=== PATIENT | male | born 1945 | race Hispanic/Latino ===

== ENCOUNTER → 2017-12-16 | Outpatient (CLI) | payer MEDICARE ==
--- NOTE | 2017-12-19 18:29 | Polysomnography ---
DATE OF STUDY: REFERRING PHYSICIAN: Dr. Calin Cornelius. HISTORY OF PRESENT ILLNESS: The patient reports snoring and a history of obstructive sleep apnea. Without the CPAP machine, the patient has difficulty sleeping and daytime somnolence. INTERPRETATION: The patient came for a 2nd night study with titration. The patient slept for 367.5 minutes out of 466.1 minutes. The sleep efficiency was 79.4%. The sleep onset latency was 1.5 minutes. The latency to REM was 287.5 minutes. The patient spent 77 minutes in REM sleep, which was 21% of the night. The minimal heart rate was 48 beats per minute. The minimal saturation was 87%. The patient had some increased limb movements. The patient spent 99.8% of the night in the supine position. The [place] sleep score was 11. The marine extension agent desensitized the patient to CPAP with a full face mask. The patient initiated CPAP at 4 cm of water pressure and then gradually increased to 14 cm of water pressure. At 14 cm of water pressure, respiratory events were still present and the CPAP was switched to BiPAP. The BiPAP was increased to 19/15. The patient had some induced central apneas, and a backup rate of 10 was required. IMPRESSION: 1. Successful treatment of obstructive sleep apnea with BiPAP. 2. Therapeutically induced central sleep apneas requiring a backup rate. 3. Increased daytime somnolence with [place] sleep score of 11. RECOMMENDATIONS: 1. BiPAP S/T at a setting of 19/15 cm of water pressure with a backup rate of 10 and a heated humidifier. 2. Avoid alcohol or sedatives prior to retiring at night. 3. Medically supervised weight loss. 4. Followup in 1 month to ensure compliance and good therapeutic results with BiPAP. Job#: [id number] EV
== END ==
LOC: SLEEP 19:23
PROVIDERS: ATTEND Family Medicine
DX: G47.30 Sleep apnea, unspecified (principal)
CPT/HCPCS: 95811

== ENCOUNTER → 2018-08-16 | Outpatient (CLI) | payer MEDICARE ==
--- NOTE | 2018-08-16 12:19 | Diagnostic Imaging Report ---
PROCEDURE:HIP LEFT 2 Views COMPARISON:None. INDICATIONS:LOW BACK/LEFT HIP PAIN FINDINGS: No evidence of fracture or malalignment. Moderate degenerative changes in the left hip with joint space narrowing, subchondral sclerosis, and bony osteophyte formation. Atherosclerotic vascular calcifications are present. Two radiopaque densities project over the pubic symphysis. CONCLUSION: Moderate left hip osteoarthritis. No acute osseous abnormality. Dictated by: OANH FREDERICK M.D. on 08/16/2018 at 11:07 Electronically approved by: OANH FREDERICK M.D. on 08/16/2018 at 11:07
--- NOTE | 2018-08-16 12:19 | Diagnostic Imaging Report ---
PROCEDURE:L-SPINE COMPLETE COMPARISON:None. INDICATIONS:LOW BACK PAIN FINDINGS: There are five lumbar-type vertebral bodies. Minimal retrolisthesis of L5 on S1. Vertebral body heights are maintained without evidence of fracture. Multilevel degenerative disc and facet degenerative changes, with moderate severity at L5-S1 with associated bony neural foraminal stenosis. Atherosclerotic calcifications of the abdominal aorta. CONCLUSION: No acute osseous abnormality. Moderate degenerative disc and facet degenerative changes at L5-S1 with associated bony neural foraminal stenosis. Dictated by: OANH FREDERICK M.D. on 08/16/2018 at 11:03 Electronically approved by: OANH FREDERICK M.D. on 08/16/2018 at 11:03
== END ==
LOC: RAD 09:48
PROVIDERS: ATTEND Family Medicine
DX: M54.5 Low back pain (principal); M25.552 Pain in left hip
CPT/HCPCS: 72110

== ENCOUNTER → 2018-11-04 | Day surgery (SDC) | payer MEDICARE ==
[2018-11-02 13:55] LABS: BASOPHILS % 0.5 % (0.0-1.0); EOSINOPHILS # (AUTO) 0.2 (0.0-0.4); EOSINOPHILS % 3.1 % (0.0-6.0); HEMATOCRIT 43.2 % (38.2-49.6); HEMOGLOBIN 14.7 g/dL (14.0-18.0); LYMPHOCYTES # (AUTO) 1.2 (1.0-3.2); LYMPHOCYTES % 20.9 % (18.0-39.1); MEAN CORPUSCULAR HEMOGLOBIN 29.3 pg (28-32); MEAN CORPUSCULAR VOLUME 86.2 fL (81-99); MONOCYTES # (AUTO) 0.4 (0.2-0.8); MONOCYTES % 6.4 % (4.4-11.3); NEUTROPHILS % 68.6 % (38.7-80.0); PLATELET COUNT 159 x10e3/uL (140-360); RED BLOOD COUNT 5.01 x10e6/uL (4.3-5.7); RED CELL DISTRIBUTION WIDTH 12.9 % (11.7-14.4)
--- NOTE | 2018-11-02 14:21 | Diagnostic Imaging Report ---
EXAM: XR CHEST 2 VIEWS DATE: 11/02/2018 1:45 PM INDICATION: Hematuria, UTI COMPARISON: None FINDINGS: Lines and Tubes: None Heart and Mediastinum: The heart is upper limits of normal. There is tortuosity of the aorta. Lungs and Pleura: No significant pleural effusion, pneumothorax, or focal consolidation. Minimal opacities in the lung bases statistically represent atelectasis, however, infectious process could have a similar appearance. Bones and Soft Tissues: Surgical anchor left humeral head. IMPRESSION: 1. No acute findings. Chronic changes as above. Signed by: Dr. Kodi West MD on 11/02/2018 2:17 PM
[~2018-11-04] MED LIST: ARICEPT5 MG PO; ATORVASTATIN CA10 MG PO; BELLADONNA/OPIUM 60 MG SUPP PR ONE; CEFTRIAXONE SOD 1 GM VIAL ONE; DEXAMETHASONE SOD PHOS INJ 4 MG/ML VIAL ONE; DIGOXIN125 MCG PO; HYDRALAZINE HCL 20 MG/ML VIAL ONE; IOPAMIDOL 610MG/1ML 300 MG/ML VIAL IV ONE; LIDOCAINE HCL 2% LOCAL INJ 5 ML SDV VIAL INJ ONE; MYRBETRIQ50 MG; NAMENDA10 MG; ONDANSETRON HCL INJ 2 MG/ML VIAL ONE; PROPOFOL IV EMULSION 10 MG/ML 20 ML VIAL ONE; SEVOFLURANE INHAL SOLN 250 ML PEN BTL ONE; XARELTO20 MG
--- OUTSIDE RECORDS SUMMARY | 2018-11-04 09:46 | XMS REPORT ---
[facility] Address Unknown Phone Unavailable Care Team Providers Care Mri Tech Name Role Phone DAIN LEDESMA Unavailable Unavailable XIOMARA JARRELL Unavailable Unavailable Problems This patient has no known problems. Allergies, Adverse Reactions, Alerts This patient has no known allergies or adverse reactions. Medications This patient has no known medications. Results Test Description Test Time Test Comments Text Results Atomic Results Result Comments CHEST 2 VIEWS 2018-11-02 14:16:00 [place] [address] Patient Name: MARCK TOLEDO MR #: [id number] : 1945 Age/Sex: 73/M Req #: [id number] Adm Physician: Ordered by: DAIN LEDESMA MD Report #: [id number] Location: OR Room/Bed: Procedure: [id number] DX/CHEST 2 VIEWS Exam Date: 11/02/18 Exam Time: 1402 REPORT STATUS: Signed EXAM: XR CHEST 2 VIEWS DATE: 11/02/2018 1:45 PM REYNALDO CATION: Hematuria, UTI COMPARISON: None FINDINGS: Lines and Tubes: None Heart and Mediastinum: The heart is upper limits of normal. There is tortuosity of the aorta. Lungs and Pleura: No significant pleural effusion, pneumothorax, or focal consolidation. Minimal opacities in the lung bases statistically represent atelectasis, however, infectious process could have a similar appearance. Bones and Soft Tissues: Surgical anchor left humeral head. IMPRESSION: 1. No acute findings. Chronic changes as above. Signed by: Dr. Kodi West MD on 11/02/2018 2:17 PM Dictated By: KODI WEST MD 16 Transcribed By: TY on 11/02/181416 COPY TO: DAIN LEDESMA MD HIP LEFT 2-3 VW (+/- PELVIS) 2018-08-16 11:07:00 [place] [address] Patient Name: MARCK TOLEDO MR #: [id number] : 1945 Age/Sex: 73/M Req #: [id number] Adm Physician: Ordered by: CHRYSTAL PFEIFFER, XIOMARA Prasad MD Report #: [id number] Location: [facility] Room/Bed: Procedure: [id number] DX/HIP LEFT 2-3 VW (+/- PELVIS) Exam Date: Exam Time: REPORT STATUS: Signed PROCEDURE: HIP LEFT 2 Views COMPARISON: None. INDICATIONS: LOW BACK/LEFT HIP PAIN FINDINGS: No evidence of fracture or malalignment. Moderate degenerative changes in the left hip with joint space narrowing, subchondral sclerosis, and bony osteophyte formation. Atherosclerotic vascular calcifications are present. Two radiopaque densities project over the pubic symphysis. CONCLUSION: Moderate left hip osteoarthritis. No acute osseous abnormality. Dictated by: OANH FREDERICK M.D. on 08/16/2018 at 11:07 Electronically approved by: OANH FREDERICK M.D. on 08/16/2018 at 11:07 Dictated By: OANH FREDERICK MD 06 Transcribed By: KALYN on 08/16/18 110 COPY TO: XIOMARA JARRELL LUMBAR, COMPLETE MIN 4VW 2018-08-16 11:03:00 [facility] [address] [place] [address] Patient Name: MARCK TOLEDO MR #: [id number] : 1945 Age/Sex: 73/M Req #: [id number] Adm Physician: Ordered by: XIOMARA JARRELL MD, MD Report #: [id number] Location: [facility] Room/Bed: Procedure: [id number] DX/BIRGIT LUMBAR, COMPLETE MIN 4VW Exam Date: 08/16/18 Exam Time: 1030 REPORT STATUS: Signed PROCEDURE: L-SPINE COMPLETE COMPARISON: None. INDICATIONS: LOW BACK PAIN FINDINGS: There are five lumbar- type vertebral bodies. Minimal retrolisthesis of L5 on S1. Vertebral body heights are maintained without evidence of fracture. Multilevel degenerative disc and facet degenerative changes, with moderate severity at L5-S1 with associated bony neural foraminal stenosis. Atherosclerotic calcifications of the abdominal aorta. CONCLUSION: No acute osseous abnormality. Moderate degenerative disc and facet degenerative changes at L5-S1 with associated bony neural foraminal stenosis. Dictated by: OANH FREDERICK M.D. on 08/16/2018 at 11:03 Electronically approved by: OANH FREDERICK M.D. on 08/16/2018 at 11:03 Dictated By: OANH FREDERICK MD 02 Transcribed By: KALYN on 08/16/18 110 COPY TO: XIOMARA JARRELL
[2018-11-04 11:19] LABS: INR 1.05; PROTHROMBIN TIME 14.6 seconds (11.9-14.5)
[2018-11-04 11:20] LABS: PARTIAL THROMBOPLASTIN TIME 33.8 seconds (23.8-35.5)
[2018-11-04 11:28] LABS: ALANINE AMINOTRANSFERASE 24 IU/L (0-55); ALBUMIN 3.6 g/dL (3.5-5.0); ALBUMIN/GLOBULIN RATIO 1.4 (0.8-2.0); ALKALINE PHOSPHATASE 68 IU/L (40-150); ANION GAP 13.1 mmol/L (8-16); BLOOD UREA NITROGEN 16 mg/dL (7-26); BUN/CREATININE RATIO 22 (6-25); CALCIUM 8.9 mg/dL (8.4-10.2); CARBON DIOXIDE 24 mmol/L (22-29); CHLORIDE 109 mmol/L (98-107); CREATININE, SERUM 0.74 mg/dL (0.72-1.25); EST GLOMERULAR FILTRATION RATE > 60 ML/MIN (60-); GLUCOSE 98 mg/dL (74-118); POTASSIUM 4.1 mmol/L (3.5-5.1); SODIUM 142 mmol/L (136-145)
[2018-11-04 15:20] VITALS: BP 147/82
--- NOTE | 2018-11-04 19:41 | Operative Report ---
DATE OF PROCEDURE: November 04, 2018 PREOPERATIVE DIAGNOSIS: Gross hematuria. POSTOPERATIVE DIAGNOSES 1. Gross hematuria. 2. Bulbar urethral stricture. OPERATIONS PERFORMED 1. Cystourethroscopy with calibration and dilation of urethral stricture (separately performed for the diagnosis of stricture). 2. Cystourethroscopy with bilateral ureteral catheterization and retrograde ureteropyelography (separately performed for the hematuria). 3. Interpretation of retrograde ureteral pyelography. ANESTHESIA: General. COMPLICATIONS: None. CLINICAL SUMMARY: Eddi Aguilar is a 73-year-old man with a history of BPH. He is status post transurethral prostatectomy. The patient also has a history of prostate cancer and is status post radiotherapy. The patient had an episode of gross hematuria. Hematuria was self-limited, but he is brought to the operating room for evaluation. He and his daughter are aware of the risks of bleeding, infection, injury to adjacent structures, need for additional procedures, and elected to proceed. OPERATIVE PROCEDURE IN DETAIL: Informed consent was verified. Eddi Aguilar was properly identified, taken to the operating room and placed on the lithotripsy table in supine position. Anesthesia was uneventfully begun. The patient was then carefully gently repositioned in the dorsal lithotomy position with all pressure points well padded. His genitalia were prepared and draped in usual sterile fashion. A 22.5-Namibian cystoscope sheath with visual obturator in place was atraumatically inserted into the patient's urethra. It was guided down the unremarkable urethra through the bulbar region where there was a wide caliber urethral stricture. We calibrated it at proximally 16-Namibian in size and gently dilated it to 22.5-Namibian in size to fit the cystoscope sheath with the visual obturator. We then passed a normal sphincteric region and went through the prostate bed. The prostate bed was significant for being status post transurethral resection. The proximal portion of the prostate bed was wide open. There was some residual or regrowth of BPH tissue at the apex. There was some mild friability of the prostatic urethral mucosa and some hyperemia of the same mucosa. There was blanching of mucosa following radiotherapy. We entered the patient's bladder where panendoscopy revealed no suspicious mucosal lesions, no tumors, no stones. There was a 3-mm piece of some tissue that was floating in the bladder that we evacuated out. It disintegrated and could not be stent for histopathological analysis. There were trabeculations noted, but no suspicious lesions. An 8-Namibian catheter was used to cannulate each ureter and retrograde ureteropyelograms were performed. Interpretation of retrograde ureteropyelography contrast was instilled in retrograde fashion bilaterally. There were no tumors, no stones, and no diverticula. Unobstructed drainage was observed bilaterally fluoroscopically. J-hooking was noted as well as distal ureteral narrowing. The patient's bladder was drained. We carefully reexamined the prostate bed as we exited and there was minimal oozing from the hyperemic prostatic urethral mucosa. There was no bleeding from the dilation of the urethral stricture. The belladonna and opium suppository was placed, revealing a prostate that was smooth and flat without any obvious nodule. It was generally firm. The patient was then uneventfully reversed from anesthesia and taken to recovery room in stable condition. There were no complications during the procedure. The patient tolerated the procedure well. Estimated blood loss was minimal. Explicit postoperative instructions were given and we will follow the patient up in the office at followup appointment. We plan on performing uroflowmetry and bladder ultrasonography to revaluate the patient's voiding following stricture dilation. Job#: [id number] RTY cc:XIOMARA JARRELL MD
== END | disposition home or self-care (01) ==
LOC: OR 09:44
PROVIDERS: ATTEND Urology
DX: N35.912 Unspecified bulbous urethral stricture, male (principal); N40.0 Benign prostatic hyperplasia without lower urinary tract symptoms; N32.89 Other specified disorders of bladder; Z85.46 Personal history of malignant neoplasm of prostate; Z92.3 Personal history of irradiation; G47.33 Obstructive sleep apnea (adult) (pediatric); I48.91 Unspecified atrial fibrillation; R00.1 Bradycardia, unspecified; G30.9 Alzheimer's disease, unspecified; F02.80 Dementia in other diseases classified elsewhere, unspecified severity, without behavioral disturbance, psychotic disturbance, mood disturbance, and anxiety; Z01.810 Encounter for preprocedural cardiovascular examination; Z01.812 Encounter for preprocedural laboratory examination; Z01.818 Encounter for other preprocedural examination; Z87.891 Personal history of nicotine dependence
CPT/HCPCS: 36415 ×2; 52281; 71046; 74420; 80053; 85025; 85610; 85730; 93005; C1758; J0360; J0696; J1100; J2001; J2405; J2704; Q9967

== ENCOUNTER 2019-09-16 15:31 | Inpatient (IN) | payer MEDICARE ==
[~2019-09-16] VITALS: Ht 170.2 cm; Wt 88.0 kg
[~2019-09-16 15:31] MED LIST changes: -BELLADONNA/OPIUM 60 MG SUPP PR ONE; -CEFTRIAXONE SOD 1 GM VIAL ONE; -DEXAMETHASONE SOD PHOS INJ 4 MG/ML VIAL ONE; -HYDRALAZINE HCL 20 MG/ML VIAL ONE; -IOPAMIDOL 610MG/1ML 300 MG/ML VIAL IV ONE; -LIDOCAINE HCL 2% LOCAL INJ 5 ML SDV VIAL INJ ONE; -ONDANSETRON HCL INJ 2 MG/ML VIAL ONE; -PROPOFOL IV EMULSION 10 MG/ML 20 ML VIAL ONE; -SEVOFLURANE INHAL SOLN 250 ML PEN BTL ONE
--- OUTSIDE RECORDS SUMMARY | 2019-09-16 15:34 | XMS REPORT ---
Author Author [facility] Address Unknown Phone Unavailable Care Team Providers Care Sas Programmer Remote Name Role Phone BALTAZAR DAIN Unavailable Unavailable CORNELIUS XIOMARA Unavailable Unavailable Payers Payer Name Policy Type Policy Number Effective Date Expiration Date Problems This patient has no known problems. Allergies, Adverse Reactions, Alerts Allergy Name Allergy Type Status Severity Reaction(s) Onset Date Inactive Date Treating Clinician Comments No Known Allergies DA Active U 2018-10-10 00:00:00 No Known Drug Intolerances DA Active U 2009-05-27 00:00:00 Not Converted 80. See Text. DA Active U 2009-05-27 00:00:00 Medications This patient has no known medications. Encounters Start Date/Time End Date/Time Encounter Type Admission Type Attending Clinicians Care Facility Care Department Encounter ID 2019-06-13 08:20:00 2019-06-13 08:20:00 Outpatient [id number] 2019-03-14 15:00:00 2019-03-14 15:00:00 Outpatient [facility]SE [id number] Results Test Description Test Time Test Comments Text Results Atomic Results Result Comments INTERVERTEBRAL DISC 2019-06-27 16:12:00 RUN DATE: 06/27/19 [facility] PAGE 1 RUN TIME: 1612 Specimen Inquiry RUN USER: INTERFACE PATIENT: MARCK TOLEDO LOC: VERONIQUE U #: [id number] AGE/SX: 73/M ROOM: [facility] RE06/26/19REG DR: Edwar Ch MD : 45 BED: A DIS: 06/27/19 STATUS: DIS Rosalba TLOC: SPEC #: [id number] RECD: 06/26/19 STATUS: SHARON REQ #: [id number] [place]: 06/26/19-105 [facility] [address]: Edwar Ch MD ENTERED: 06/26/19-4506 SP TYPE: INT DISC OTHR DR: Xiomara Cornelius MD ORDERED: CARTER COPIES TO: Edwar Ch MD [address] [place] [address] Xiomara Cornelius MD [address] [place], [place] [address] P ROCEDURES: CARTER (06/27/19-1254) TISSUES: LUMBAR REGION - DISC AND LIGAMENTUM FLAVUM CLINICAL HISTORY COLLECTION DATE: 06/26/2019 L4-5 SPINAL STENOSIS FINAL DIAGNOSIS Disc and ligamentum flavum, L4- 5, laminectomy: CARTILAGE WITH DEGENERATIVE CHANGE TRABECULAR BONE WITH UNREMARKABLE MARROW ELEMENTS AND MILD REACTIVE APPEARING FIBROSIS NEGATIVE FOR MALIGNANCY RRB/brady D 17230, 16181 MACROSCOPIC The specimen is received in formalin, labeled with the patient's name, and identified as "disc and ligamentum flavum", and consists of irregular fragments of hunt-pink fibrous tissue and bone measuring 4.0 x 4.0 x up to 0.8 cm in aggregate. Sales Financial Analyst portions of tissue are submitted for histologic CONTINUED ON NEXT PAGE RUN DATE: 06/27/19 [facility] PAGE 2 RUN TIME: 1612 Specimen Inquiry RUN USER: INTERFACE SPEC #: [id number] PATIENT: MARCK TOLEDO #[id number] (Continued) MACROSCOPIC (Continued) evaluation after decalcification. The tissue is submitted in a single cassette. GROSS PERFORMED AT [facility] [address] [place] [address] [phone] MICROSCOPIC All of the stains, including any controls performed, stain appropriately. MICROSCOPIC PERFORMED AT [facility] [address] [place] [address] [phone] PERFORMING SITE Diagnosis performed at: [facility], [place] [address] [facility] [place] [address] -------- Signed SIGNATURE ON FILE Deandre Tripp MD 06/27/19 1612 END OF REPORT - XR SPINE 1 V SPEC LEVEL 2019-06-26 11:30:00 FAX: Edwar Singletary MD [phone] [place]: St: REG FAX: Xiomara Reynolds MD [phone] Name: MARCK TOLEDO [facility] : 1945 Age/S: 73/M [address] Unit #: [id number] Loc: [place] [address] Phys: Edwar Ch MD Acct: [id number] Dis Date: Status: [place] [facility] PHONE #: [phone] Exam Date: 06/26/2019 0957 FAX #: [phone] Reason: LAMINECTOMY EXAMS: CPT CODE: [id number] XR SPINE 1 V SPEC LEVEL 78273 HISTORY: Laminectomy. COMPARISON: None available. Crosstable lateral lumbar spine obtained at 9:55 AM demonstrating marker at L4-L5 level. Crosstable lateral lumbar spine obtained at 10:05 AM demonstrating marker at L4-L5 level. at 1130 Reported and signed by: Tim Pro M.D. CC: Edwar Ch MD; Xiomara Cornelius MD Technologist: KUNAL GARCÍA JR Trnscrd Date/Time/By: 06/26/2019 (1133) : By: YanethT H4 [employer] Print D/T: S: 06/26/2019 (9664) PAGE 1 Signed Report - XR SPINE 1 V SPEC LEVEL 2019-06-26 11:30:00 FAX: Edwar Singletary MD [phone] [place]: St: REG FAX: Xiomara Reynolds MD [phone] Name: MARCK TOLEDO [facility] : 1945 Age/S: 73/M [address] Unit #: [id number] Loc: [place] [address] Phys: Edwar Ch MD Acct: [id number] Dis Date: Status: REG [facility] PHONE #: [phone] Exam Date: 06/26/2019 0947 FAX #: [phone] Reason: LAMINECTOMY EXAMS: CPT CODE: [id number] XR SPINE 1 V SPEC LEVEL 99624 HISTORY: Laminectomy. COMPARISON: None available. Crosstable lateral lumbar spine obtained at 9:55 AM demonstrating marker at L4-L5 level. Crosstable lateral lumbar spine obtained at 10:05 AM demonstrating marker at L4-L5 level. at 1130 Reported and signed by: Tim Pro M.D. CC: Edwar Ch MD; Xiomara Cornelius MD Technologist: KUNAL GARCÍA JR Trnscrd Date/Time/By: 06/26/2019 (7145) : By: Ruma H4 Orig Print D/T: S: 06/26/2019 (9512) PAGE 1 Signed Report PROTHROMBIN TIME 2019-06-23 12:19:00 PROTHROMBIN TIME PATIENT (test code=PTP) 14.0 seconds 9.0-14.0 INTERNATIONAL NORMAL RATIO (test code=INR) 1.2 0.8-1.2 The therapeutic range for oral anticoagulant therapy formost indications is an international normalized ratio (INR)of between 2.0 and 3.0. The recommended therapeutic INRrange for various clinical situations is listed below: Clinical Situation INR range Pulmonary e mbolism treatment (2.0-3.0)Venous thrombosis treatmentVenous thrombosis prophylaxis (high risk surgery)Prevention of systemic embolism from: Acute myocardial infarction Valvular heart disease Atrial fibrillation Mechanical prosthetic heart valves (2.5-3.5) THROMBOPLASTIN TIME [id number] 12:19:00* Test Item Value Reference Range Comments THROMBOPLASTIN TIME PARTIAL (test code=PTT) 40.5 seconds 25.0-36.5 BASIC METABOLIC [id number] 12:17:00* Test Item Value Reference Range Comments SODIUM (test code=NA) 144 mmol/L 136-145 POTASSIUM (test code=K) 4.1 mmol/L 3.5-5.1 CHLORIDE (test code=CL) 108.0 mmol/L 98-107 CARBON DIOXIDE (test code=CO2) 31.0 mmol/L 21-32 ANION GAP (test code=GAP) 9.1 10-20 GLUCOSE (test code=GLU) 164 mg/dL 74-106 BLOOD UREA NITROGEN (test code=BUN) 19 mg/dL 7-18 GLOMERULAR FILTRATION RATE (test code=GFR) > 60 mL/min >=60 Estimated GFR by using Modified MDRD formula.Chronic kidney disease is defined as either kidney damageor GFR <60 mL/min/1.73 m2 for >3 months. CREATININE (test code=CREAT) 0.90 mg/dL 0.7-1.3 BUN/CREATININE RATIO (test code=BUN/CREA) 21.9 10-20 CALCIUM (test code=CA) 9.1 mg/dL 8.5-10.1 BASIC METABOLIC [id number] 12:13:00* Test Item Value Reference Range Comments SODIUM (test code=NA) 144 mmol/L 136-145 POTASSIUM (test code=K) 4.1 mmol/L 3.5-5.1 CHLORIDE (test code=CL) 108.0 mmol/L 98-107 CARBON DIOXIDE (test code=CO2) mmol/L 21-32 ANION GAP (test code=GAP) 10-20 GLUCOSE (test code=GLU) mg/dL 74-106 BLOOD UREA NITROGEN (test code=BUN) mg/dL 7-18 GLOMERULAR FILTRATION RATE (test code=GFR) mL/min >=60 CREATININE (test code=CREAT) mg/dL 0.7-1.3 BUN/CREATININE RATIO (test code=BUN/CREA) 10-20 CALCIUM (test code=CA) mg/dL 8.5-10.1 - XR CHEST 2 [id number] 12:02:00 FAX: Edwar Singletary MD [phone] [place]: O St: PRE FAX: Xiomara Reynolds MD [phone] Name: MARCK TOLEDO [facility] : 1945 Age/S: 73/M [address] [facility] Unit #: [id number] Loc: [place] [address] Phys: Edwar Ch MD Acct: [id number] Dis Date: Status: PRE IN PHONE #: [phone] Exam Date: 06/23/2019 1148 FAX #: [phone] Reason: PRE OP EXAMS: CPT CODE: [id number] XR CHEST 2 V 69292 HISTORY: Preop. COMPARISON: None available. AP and lateral view of the chest: No acute infiltrates, effusion or congestion. Cardiac silhouette is mildly enlarged. DJD of the dorsal spine. IMPRESSION: No acute infiltrates, effusion or congestion. at 1202 Reported and signed by: Tim Pro M.D. CC: Edwar Ch MD; Xiomara Cornelius MD Technologist: VALERIA OATES RT (R) Trnscrd Date/Time/By: 06/23/2019 (2847) : By: [email or web address].[email or web address] Orig Print D/T: S: 06/23/2019 (4401) PAGE 1 Signed Report CBC W/AUTO [id number] 11:59:00* Test Item Value Reference Range Comments WHITE BLOOD CELL (test code=WBC) K/mm3 4.5-12.5 RED BLOOD CELL (test code=RBC) mill/mm3 4.0-5.8 HEMOGLOBIN (test code=HGB) 14.9 gram/dL 13.0-17.5 HEMATOCRIT (test code=HCT) 45.8 % 42.0-52.0 MEAN CELL VOLUME (test code=MCV) fL 80-98 MEAN CELL HGB (test code=MCH) picogram 27.0-33.0 MEAN CELL HGB CONCETRATION (test code=MCHC) gram/dL 33.0-36.0 RED CELL DISTRIBUTION WIDTH (test code=RDW) % 11.6-16.2 RED CELL DISTRIBUTION WIDTH SD (test code=RDW-SD) fL 37.0-51.0 PLATELET COUNT (test code=PLT) K/mm3 150-450 MEAN PLATELET VOLUME (test code=MPV) fL 6.7-11.0 NEUTROPHIL % (test code=NT%) % 39.0-69.0 IMMATURE GRANULOCYTE % (test code=IG%) % 0.0-5.0 LYMPHOCYTE % (test code=LY%) % 25.0-55.0 MONOCYTE % (test code=MO%) % 0.0-10.0 EOSINOPHIL % (test code=EO%) % 0.0-5.0 BASOPHIL % (test code=BA%) % 0.0-1.0 NEUTROPHIL # (test code=NT#) K/mm3 1.8-7.7 LYMPHOCYTE # (test code=LY#) K/mm3 1.0-5.0 MONOCYTE # (test code=MO#) K/mm3 0-0.8 EOSINOPHIL # (test code=EO#) K/mm3 0.0-0.5 BASOPHIL # (test code=BA#) K/mm3 0.0-0.2 CBC W/AUTO [id number] 11:59:00* Test Item Value Reference Range Comments WHITE BLOOD CELL (test code=WBC) 5.2 K/mm3 4.5-12.5 RED BLOOD CELL (test code=RBC) 5.18 mill/mm3 4.0-5.8 HEMOGLOBIN (test code=HGB) 14.9 gram/dL 13.0-17.5 HEMATOCRIT (test code=HCT) 45.8 % 42.0-52.0 MEAN CELL VOLUME (test code=MCV) 88.4 fL 80-98 MEAN CELL HGB (test code=MCH) 28.8 picogram 27.0-33.0 MEAN CELL HGB CONCETRATION (test code=MCHC) 32.5 gram/dL 33.0-36.0 RED CELL DISTRIBUTION WIDTH (test code=RDW) 12.5 % 11.6-16.2 RED CELL DISTRIBUTION WIDTH SD (test code=RDW-SD) 40.6 fL 37.0-51.0 PLATELET COUNT (test code=PLT) 131 K/mm3 150-450 MEAN PLATELET VOLUME (test code=MPV) 10.3 fL 6.7-11.0 NEUTROPHIL % (test code=NT%) 72.6 % 39.0-69.0 IMMATURE GRANULOCYTE % (test code=IG%) 0.4 % 0.0-5.0 LYMPHOCYTE % (test code=LY%) 17.0 % 25.0-55.0 MONOCYTE % (test code=MO%) 4.6 % 0.0-10.0 EOSINOPHIL % (test code=EO%) 4.8 % 0.0-5.0 BASOPHIL % (test code=BA%) 0.6 % 0.0-1.0 NUCLEATED RBC % (test code=NRBC%) 0.0 % 0-0 NEUTROPHIL # (test code=NT#) 3.81 K/mm3 1.8-7.7 IMMATURE GRANULOCYTE # (test code=IG#) 0.02 x10 3/uL 0-0.03 LYMPHOCYTE # (test code=LY#) 0.89 K/mm3 1.0-5.0 MONOCYTE # (test code=MO#) 0.24 K/mm3 0-0.8 EOSINOPHIL # (test code=EO#) 0.25 K/mm3 0.0-0.5 BASOPHIL # (test code=BA#) 0.03 K/mm3 0.0-0.2 NUCLEATED RBC # (test code=NRBC#) 0.00 K/mm3 0.0-0.1 MANUAL DIFF REQUIRED (test code=MDIFF) NO CHEST 2 [id number] 14:16:00 [place] [address] Patient Name: MARCK TOLEDO MR #: [id number] : 1945 Age/Sex: 73/M Req #: [id number] Adm Physician: Ordered by: DAIN LEDESMA MD Report #: [id number] Location: OR Room/Bed: Procedure: [id number] DX/C HEST 2 VIEWS Exam Date: 11/02/18 Exam Time: 1402 REPORT STATUS: Signed EXAM: XR CHEST 2 VIEWS DATE: 11/02/2018 1:45 PM INDICATION: Hematuria, UTI COMP ARISON: None FINDINGS: Lines and Tubes: None Heart and Mediastinu m: The heart is upper limits of normal. There is tortuosity of the aorta. Lungs and Pleura: No significant pleural effusion, pneumothorax, or focal con solidation. Minimal opacities in the lung bases statistically represent atelec tasis, however, infectious process could have a similar appearance. Bones a nd Soft Tissues: Surgical anchor left humeral head. IMPRESSION: 1. No a cute findings. Chronic changes as above. Signed by: Dr. Rob West MD on 11/02/2018 2:17 PM Dictated By: ROB WEST MD 16 Transcribed By: TY on 11/02/181416 COPY TO: DAIN LEDESMA MD HIP LEFT 2-3 VW (+/- PELVIS)2018-08-16 11:07:00 [place] [address] Patient Name: MARCK TOLEDO MR #: [id number] : 1945 Age/Sex: 73/M Req #: [id number] Adm Physician: Ordered by: CHRYSTAL PFEIFFER, XIOMARA Prasad MD Report #: [id number] Location: [facility] Room/Bed: Procedure: DX/HIP LEFT 2-3 VW (+ /- PELVIS) Exam Date: Exam Time: REPORT STAT US: Signed PROCEDURE: HIP LEFT 2 Views COMPARISON: None. REYNALDO CATIONS: LOW BACK/LEFT HIP PAIN FINDINGS: No evidence of fracture o r malalignment. Moderate degenerative changes in the left hip with joint spac e narrowing, subchondral sclerosis, and bony osteophyte formation. Atheroscle rotic vascular calcifications are present. Two radiopaque densities project o yoselin the pubic symphysis. CONCLUSION: Moderate left hip osteoart hritis. No acute osseous abnormality. Dictated by: OANH FREDERICK M.D. on at 11:07 Electronically approved by: OANH FREDERICK M.D. on 018 at 11:07 Dictated By: OANH FREDERICK MD 1107 Transcribed By: KALYN on 08/16/18 1107 C OPY TO: XIOMARA CORNELIUS LUMBAR, COMPLETE MIN [id number] 11:03:00 [place] [address] Patient Name: MARCK TOLEDO MR #: [id number] : 1945 Age/Sex: 73/M Req #: [id number] Adm Physicia n: Ordered by: CHRYSTAL PFEIFFER, XIOMARA Prasad MD Report #: [id number] Location: [facility] Room/Bed: Procedure: DX/SP LUMBAR, COMPLET E MIN 4VW Exam Date: 08/16/18 Exam Time: 1030 REPORT STATUS: Signed PROCEDURE: L-SPINE COMPLETE COMPARISON: None. INDICATIONS: LOW BACK PAIN FINDINGS: There are five lumbar-t ype vertebral bodies. Minimal retrolisthesis of L5 on S1. Vertebral body heig hts are maintained without evidence of fracture. Multilevel degenerative disc and facet degenerative changes, with moderate severity at L5-S1 with associa ike bony neural foraminal stenosis. Atherosclerotic calcifications of the abd ominal aorta. CONCLUSION: No acute osseous abnormality. Modera te degenerative disc and facet degenerative changes at L5-S1 with associated bony neural foraminal stenosis. Dictated by: OANH FREDERICK M.D. on 07/30 at 11:03 Electronically approved by: OANH FREDERICK M.D. 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 TO: XIOMARA CORNELIUS CT ABDOMEN/PELVIS WOW [place] [address] Patient Name: MARCK TOLEDO MR #: [id number] : 1945 Age/Sex: 72/M Req #: [id number] Adm Physician: Ordered by: DAIN LEDESMA MD Report #: [id number] Location: CT Room/Bed: Procedure: [id number] CT/CT ABDOMEN/PELVIS WOW Exam Date: 11/16/17 Exam Time: 1700 REPORT STATUS: S igned PROCEDURE: CT ABDOMEN T PELVIS W/WO CONTRAST TECHNIQUE: The abdomen and pelvis were scanned utilizing a multidetector helical scanner fro m the diaphragm to the lesser trochanter before and after the IV administrati on of 150 cc of Isovue 370 and the oral administration of water. Coronal and sagittal multiplanar reformations were obtained. COMPARISON: Patients [facility], CT, CT ABDOMEN/PELVIS WOW, 06/25/2015, 13:22. INDICATIONS : Gross hematuria. FINDINGS: LOWER THORAX: Bilateral dependent atelectat ic changes. Cardiomegaly with atherosclerotic calcification of the aortic elvia ves, coronary arteries and thoracic aorta. HEPATOBILIARY: No focal hepa tic lesions. No biliary ductal dilatation. Gallbladder is unremarkable. SP MICHELLE: No splenomegaly. PANCREAS: No focal masses or ductal dilatation. A DRENALS: No adrenal nodules. KIDNEYS/URETERS: No renal or ureteral calculi. No hydronephrosis, hydroureter, or evidence of obstruction. Mild bilateral pe rinephric stranding. There is good contrast opacification of bilateral renal c ollecting systems, renal pelves, and both ureters. No filling defects, str ictures, or extrinsic compressions. Previously visualized mild urothelial thi ckening in the superior pole of the right kidney is not seen on the current e xam. No solid enhancing masses. No cystic lesions. PELVIC ORGANS/BLADDER: Mild circumferential bladder wall thickening, however, the bladder is not ful ly distended. Prostate measures approximately 4.7 x 3.9 x 4.7 cm (estimated v olume of 45 cc). PERITONEUM / RETROPERITONEUM: No free air or fluid. LYM PH NODES: No lymphadenopathy. VESSELS: Atherosclerotic calcification of the ab dominal aorta and iliac vessels. GI TRACT: No bowel dilation or evidenc e of obstruction. Colonic diverticulosis, worse in the descending and sigmoid colon, without diverticulitis. BONES AND SOFT TISSUES: No acute bony abnor malities. Degenerative disc changes in the lumbosacral spine, worse at L4-L5, and L5-S1. IMPRESSION: 1. no renal, ureteral, or bladder calculi. No hydronephrosis, hydroureter, or evidence of obstruction. No solid enhancing masses. 2. No filling defects, strictures, or extrinsic compressions in the opacified portions of the genitourinary tract. Previously visualized mild u rothelial thickening in the superior pole of the right kidney is not seen on the current exam. 3. Mild circumferential bladder wall thickening, which may b e secondary to a combination of an distended bladder and outlet obstruction f rom prostatomegaly. No focal lesions. Carlos Ibanez ictated by: Kenn Mayes M.D. on 11/16/2017 at 20:11 Electronicall y approved by: Kenn Mayes M.D. on 11/16/2017 at 20:11 Dictated By: KENN MAYES MD 10 Transcribed By: KALYN on 11/16/172010 COPY TO: MARIPOSA LEDESMA MD
[2019-09-16 17:08] LABS: BILIRUBIN,URINE SMALL (NEGATIVE); CLARITY,URINE SL CLOUDY (CLEAR); COLOR,URINE ORANGE (YELLOW); KETONES,URINE NEGATIVE (NEGATIVE); LEUKOCYTE ESTERASE ,URINE TRACE (NEGATIVE); NITRITE,URINE NEGATIVE (NEGATIVE); PROTEIN,URINE DIPSTICK 2+ (NEGATIVE); URINE UROBILINOGEN 0.2 mg/dL (0.2 - 1)
[2019-09-16] MEDS ORDERED: LIDOCAINE JELLY 2% 10ML URO-JET TOP PRN (17:15)
[2019-09-16 17:18] LABS: BACTERIA,URINE RARE /HPF; EPITHELIAL CELLS,URINE FEW /LPF; WBC,URINE (MAN) 21-50 /HPF (0-5)
[2019-09-16 18:56] LABS: BASOPHILS % 0.8 % (0.0-1.0); EOSINOPHILS # (AUTO) 0.3 (0.0-0.4); EOSINOPHILS % 5.9 % (0.0-6.0); HEMATOCRIT 39.2 % (38.2-49.6); HEMOGLOBIN 13.1 g/dL (14.0-18.0); LYMPHOCYTES # (AUTO) 1.1 (1.0-3.2); LYMPHOCYTES % 22.1 % (18.0-39.1); MEAN CORPUSCULAR HEMOGLOBIN 28.8 pg (28-32); MEAN CORPUSCULAR HGB CONC 33.4 g/dL (31-35); MEAN CORPUSCULAR VOLUME 86.2 fL (81-99); MONOCYTES # (AUTO) 0.3 (0.2-0.8); MONOCYTES % 5.1 % (4.4-11.3); NEUTROPHILS # (AUTO) 3.2 (2.1-6.9); NEUTROPHILS % 65.5 % (38.7-80.0); PLATELET COUNT 135 x10e3/uL (140-360); RED BLOOD COUNT 4.55 x10e6/uL (4.3-5.7); RED CELL DISTRIBUTION WIDTH 12.8 % (11.7-14.4)
[2019-09-16 19:10] LABS: INR 1.05; PARTIAL THROMBOPLASTIN TIME 34.4 seconds (23.8-35.5); PROTHROMBIN TIME 14.2 seconds (11.9-14.5)
[2019-09-16] MEDS ORDERED: MORPHINE SULFATE INJ 4 MG/ML INJ 1ML IV PRN (19:15)
[2019-09-16 19:21] LABS: ALANINE AMINOTRANSFERASE 14 IU/L (0-55); ALBUMIN 3.5 g/dL (3.5-5.0); ALBUMIN/GLOBULIN RATIO 1.5 (0.8-2.0); ALKALINE PHOSPHATASE 64 IU/L (40-150); BLOOD UREA NITROGEN 15 mg/dL (7-26); BUN/CREATININE RATIO 17 (6-25); CALCIUM 9.2 mg/dL (8.4-10.2); CARBON DIOXIDE 25 mmol/L (22-29); CHLORIDE 104 mmol/L (98-107); CREATINE KINASE 75 IU/L (30-200); CREATININE, SERUM 0.86 mg/dL (0.72-1.25); EST GLOMERULAR FILTRATION RATE > 60 ML/MIN (60-); GLUCOSE 132 mg/dL (74-118); SODIUM 139 mmol/L (136-145)
[2019-09-16] MEDS: CEFTRIAXONE SOD 1 GM/NS 50 ML 50 ML IV SCH (19:36)
--- NOTE | 2019-09-16 19:41 | NUR ---
NEW ADMISSION CAME FROM ER IN A STRETCHER WITH C/O HEMATURIA SINCE 2 WEEKS.AAOX3.ASSESSMENT DONE.MARSHALLESE SPEAKING.NO RESP.DISTRESS.PAIN VOICED TO PENIS 06/07.IV TO LEFT AC #18 NS RUNNING.CAIN IS IN PLACE.ON CBI.CLEAR PALE YELLOW COLORED URINE DRAINING.SNACKS PROVIDED.ORIENTED TO THE UNIT.BED LOCKED AND IN LOWEST POSITION.PHONE AND CALL LIGHT WITHIN REACH.INSTRUCTED TO CALL FOR ASSISTANCE NEEDED.
[2019-09-16 20:00] VITALS: BP 177/85
[2019-09-16 20:19] LABS: PLATELET ESTIMATE MODERATELY DECREASED
[2019-09-16 20:20] LABS: PLATELET MORPHOLOGY COMMENT FEW LARGE; RBC MORPHOLOGY COMMENT NORMAL
[2019-09-16] MEDS: SODIUM CHLORIDE 0.9% 1000ML 1,000 ML IV SCH (20:31)
[2019-09-16 21:00] VITALS: BP 177/85
[2019-09-16] MEDS: ONDANSETRON HCL INJ 2MG/ML 2ML 2 MG/ML VIAL IV PRN (21:02)
--- NOTE | 2019-09-16 21:10 | NUR ---
MEDICATED WITH MORPHINE 4MG IV.FAMILY MEMBER AT BED SIDE.
--- NOTE | 2019-09-16 22:10 | NUR ---
PATIENT IS RESTLESS.NOTIFIED TO .RECEIVED NEW ORDERS.
[2019-09-16] MEDS ORDERED: LORAZEPAM INJ 2 MG/ML VIAL IV PRN (22:15)
--- NOTE | 2019-09-16 22:40 | NUR ---
AFTER RECEIVING INJ.ATIVAN PATIENT BECAME CONFUSED AND MORE VIOLENT.
[2019-09-16] MEDS: DONEPEZIL HCL 5 MG TAB PO SCH (23:21)
[2019-09-16] MEDS: MEMANTINE 10 MG TAB PO SCH (23:22)
--- NOTE | 2019-09-16 23:54 | NUR ---
Agitated, confused, kicking and trying to pull out caruso and iv line.notified to .received new orders.d/c ativan 1mg iv.keep monitor the patient.family member at bed side.
[2019-09-17] VITALS (8 sets, daily range): BP systolic 107–172; BP diastolic 55–80
[2019-09-17] MEDS: HYDROMORPHONE 1MG/1ML INJ IV PRN ×2 (00:10→13:12)
[2019-09-17] MEDS ORDERED: ELIQUIS2.5 MG PO (01:54)
[2019-09-17] MEDS ORDERED: LATANOPROST2.5 ML OP (01:54)
[2019-09-17] MEDS ORDERED: QUETIAPINE FUMA25 MG PO (01:54)
--- NOTE | 2019-09-17 03:00 | NUR ---
sleeping in the bed.stable condition.clear urine draining.
[2019-09-17 05:41] LABS: BASOPHILS % 0.5 % (0.0-1.0); EOSINOPHILS # (AUTO) 0.3 (0.0-0.4); EOSINOPHILS % 5.6 % (0.0-6.0); HEMATOCRIT 41.5 % (38.2-49.6); HEMOGLOBIN 13.7 g/dL (14.0-18.0); LYMPHOCYTES # (AUTO) 1.4 (1.0-3.2); LYMPHOCYTES % 23.8 % (18.0-39.1); MEAN CORPUSCULAR HEMOGLOBIN 28.8 pg (28-32); MEAN CORPUSCULAR VOLUME 87.4 fL (81-99); MONOCYTES # (AUTO) 0.4 (0.2-0.8); MONOCYTES % 6.3 % (4.4-11.3); NEUTROPHILS # (AUTO) 3.7 (2.1-6.9); NEUTROPHILS % 63.5 % (38.7-80.0); PLATELET COUNT 140 x10e3/uL (140-360); RED BLOOD COUNT 4.75 x10e6/uL (4.3-5.7); RED CELL DISTRIBUTION WIDTH 12.7 % (11.7-14.4)
[2019-09-17 06:04] LABS: ALANINE AMINOTRANSFERASE 13 IU/L (0-55); ALBUMIN 3.4 g/dL (3.5-5.0); ALBUMIN/GLOBULIN RATIO 1.5 (0.8-2.0); ALKALINE PHOSPHATASE 63 IU/L (40-150); BLOOD UREA NITROGEN 14 mg/dL (7-26); BUN/CREATININE RATIO 18 (6-25); CALCIUM 9.2 mg/dL (8.4-10.2); CARBON DIOXIDE 26 mmol/L (22-29); CHLORIDE 107 mmol/L (98-107); EST GLOMERULAR FILTRATION RATE > 60 ML/MIN (60-); GLUCOSE 87 mg/dL (74-118); SODIUM 142 mmol/L (136-145)
[2019-09-17] MEDS: CEFTRIAXONE SOD 1 GM/NS 50 ML 50 ML IV SCH (06:06)
[2019-09-17] MEDS: SODIUM CHLORIDE 0.9% 1000ML 1,000 ML IV SCH (06:06)
[2019-09-17] MEDS ORDERED: HYDRALAZINE HCL 20 MG/ML VIAL IV PRN (06:30)
--- NOTE | 2019-09-17 06:34 | NUR ---
Blood pressure noted 172/76. HR 59.notified to .received new orders.
--- NOTE | 2019-09-17 07:08 | NUR ---
Bed side shift report given to the oncoming Rn.stable condition.
[2019-09-17 07:36] LABS: PLATELET ESTIMATE MODERATELY DECREASED; PLATELET MORPHOLOGY COMMENT FEW LARGE
[2019-09-17] MEDS ORDERED: MEMANTINE 10 MG TAB PO SCH (09:00)
[2019-09-17] MEDS: MEMANTINE 10 MG TAB PO SCH ×2 (09:00→17:36)
[2019-09-17] MEDS ORDERED: ACETAMINOPHEN 325 MG TAB PO PRN (12:15)
[2019-09-17] MEDS: ONDANSETRON HCL INJ 2MG/ML 2ML 2 MG/ML VIAL IV PRN (13:12)
[2019-09-17] MEDS ORDERED: SODIUM CHLORIDE 0.9% 250ML 250 ML ONE (16:46)
[2019-09-17] MEDS ORDERED: IOPAMIDOL 370 MG/ML 200 ML INFUS..BTL INJ ONE (16:46)
--- NOTE | 2019-09-17 19:10 | NUR ---
BED SIDE SHIFT REPORT TAKEN FROM MORNING ZEKE IN THE BED.STABLE CONDITION.
[2019-09-17] MEDS ORDERED: LATANOPROST(OPTH) 2.5 ML BTL OP SCH (20:00)
[2019-09-17] MEDS: DONEPEZIL HCL 5 MG TAB PO SCH (20:52)
[2019-09-17] MEDS ORDERED: DONEPEZIL HCL 5 MG TAB PO SCH (21:00)
[2019-09-17] MEDS ORDERED: QUETIAPINE FUMARATE 25 MG TAB PO SCH (21:00)
[2019-09-18] VITALS: BP 138/79
--- NOTE | 2019-09-18 00:06 | NUR ---
Serial of urine collecting.urine is clear.bed locked and in lowest position.phone and call light within reach.instructed to call for assistance as needed.
[2019-09-18 04:00] VITALS: BP 158/81
--- NOTE | 2019-09-18 07:00 | NUR ---
Bed side shift report given to the oncoming Rn.stable condition.
--- NOTE | 2019-09-18 07:00 | NUR ---
BEDSIDE ROUND COMPLETE NO DISTRESS NOTED, UPDATED ON POC VOICED UNDERSTANDING, DENIES PAIN AT THIS TIME, L AC 18G NO SS OF INFILTRATION NOTED, NO OTHER CO VOCIED CALL LIGHT IN REACH WILL CONTINUE TO MONITOR
[2019-09-18] MEDS: MEMANTINE 10 MG TAB PO SCH (08:11)
[2019-09-18 08:20] VITALS: BP 158/81
[2019-09-18 08:26] VITALS: BP 165/77
[2019-09-18] MEDS ORDERED: CEFTRIAXONE SOD 1 GM/NS 50 ML 50 ML IV SCH (09:00)
--- NOTE | 2019-09-18 10:05 | Diagnostic Imaging Report ---
EXAM: CT Abdomen and Pelvis WITHOUT and WITH intravenous contrast - Hematuria protocol INDICATION: Hematuria, prostate cancer COMPARISON: None. TECHNIQUE: Abdomen and pelvis were scanned utilizing a multidetector helical scanner from the lung base to the pubic symphysis before and after administration of IV contrast. Coronal and sagittal reformations were obtained. Hematuria protocol was used. Scan was performed prior to contrast administration and during portal venous phase. IV CONTRAST: 100 mL of Isovue 370 ORAL CONTRAST: Water COMPLICATIONS: None RADIATION DOSE: Total DLP: 1246.5 mGy*cm Dose modulation, iterative reconstruction, and/or weight based adjustment of the mA/kV was utilized to reduce the radiation dose to as low as reasonably achievable. FINDINGS: LOWER THORAX: No focal consolidation. Atherosclerotic coronary artery calcifications. HEPATOBILIARY: No focal hepatic lesions. No biliary ductal dilatation. The gallbladder appears unremarkable. SPLEEN: No splenomegaly. PANCREAS: No focal masses or ductal dilatation. ADRENALS: No adrenal nodules. KIDNEYS/URETERS: No hydronephrosis, stones, or solid mass lesions. Excretory phase images demonstrate opacification of the majority of the ureters with no hydroureter or filling defect to suggest urothelial mass lesion. PELVIC ORGANS/BLADDER: Decompressed bladder. Status post TURP. There is direct passage of contrast material from the bladder through the entire urethra. PERITONEUM / RETROPERITONEUM: No free air or fluid. LYMPH NODES: No lymphadenopathy. VESSELS: Atherosclerotic calcifications of the nonaneurysmal abdominal aorta and major branches. GI TRACT: Sigmoid and descending colon diverticulosis without CT evidence of diverticulitis. No abnormal bowel wall thickening. No bowel obstruction. Normal appendix. BONES AND SOFT TISSUES: No acute osseous injury. Degenerative changes of the visualized spine and grade 1 anterolisthesis at L3-4 and L4-5. IMPRESSION: No renal calculi, hydronephrosis, or solid mass lesion. No evidence of urothelial mass lesion. Direct passage of contrast opacified urine from the bladder through the entirety of the urethra. Signed by: Steph Vigil MD on 09/18/2019 10:01 AM
[2019-09-18 12:38] VITALS: BP 116/60
--- NOTE | 2019-09-18 22:11 | Discharge Summary ---
PRIMARY CARE DOCTOR: Dr. Calin Cornelius. 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 SECONDARY DIAGNOSES: 1. Prostate cancer. 2. Dementia. 3. Atrial fibrillation. DIRECTOR OF CORPORATE SPONSORSHIPS: Dr. Watson, Urology. PROCEDURES/STUDIES PERFORMED: CT of the abdomen and pelvis, which was benign. HISTORY: Per H and P. HOSPITAL COURSE: The patient underwent continuous bladder irrigation. His hematuria cleared up. Alejandre was discontinued. The patient is doing well. He will go home. The patient empirically was on Rocephin, however, his urine culture was negative. Therefore, this was discontinued. I have discussed with Dr. Watson. The patient may restart his Eliquis in 3 days if there is no more bleeding. The patient will have follow up with Dr. Watson. He may need an outpatient hyperbaric oxygen. The patient was seen and examined today. It took 32 minutes to discharge this patient. I have also updated the family at the bedside as well. CONDITION ON DISCHARGE: Improved. DISCHARGE MEDICATIONS: Please see medication reconciliation form. MD SHAREE Rodriguez/MAREK /[id number] cc: Calin Cornelius
== END 2019-09-18 13:20 | disposition home or self-care (01) | DRG 699 ==
LOC: ER 15:35 → ERHOLD 19:01 → MED/SURG 19:41
PROVIDERS: ADMIT Internal Medicine; ATTEND Internal Medicine
DX: N30.41 Irradiation cystitis with hematuria (principal); F03.91 Unspecified dementia, unspecified severity, with behavioral disturbance; C61 Malignant neoplasm of prostate; R31.9 Hematuria, unspecified; I48.91 Unspecified atrial fibrillation; Z79.01 Long term (current) use of anticoagulants; N40.0 Benign prostatic hyperplasia without lower urinary tract symptoms
CPT/HCPCS: 36415; 51703; 74178; 80053; 81001; 82550; 82553; 84484; 85025; 85610; 85730; 87086; 99284; J0696; J1170; J2060; J2270; J2405; J7030; J7050; Q9967

== ENCOUNTER 2019-10-18 10:47 | Outpatient (RCR) | payer MEDICARE ==
[~2019-10-18 10:47] MED LIST changes: +ELIQUIS2.5 MG PO; +LATANOPROST2.5 ML OP; +QUETIAPINE FUMA25 MG PO
== END 2019-10-28 ==
LOC: WCC 10:47
PROVIDERS: ATTEND Family Medicine
DX: N30.41 Irradiation cystitis with hematuria (principal); T66.XXXA Radiation sickness, unspecified, initial encounter; F03.90 Unspecified dementia, unspecified severity, without behavioral disturbance, psychotic disturbance, mood disturbance, and anxiety; Z01.810 Encounter for preprocedural cardiovascular examination; Z01.811 Encounter for preprocedural respiratory examination; Z85.46 Personal history of malignant neoplasm of prostate

== ENCOUNTER → 2019-11-21 | Outpatient (CLI) | payer MEDICARE | LOC: RAD 12:27 | PROVIDERS: ATTEND Internal Medicine Pulmonary Disease | DX: Z01.810 Encounter for preprocedural cardiovascular examination (principal) | CPT/HCPCS: 93005 ==

== ENCOUNTER 2020-01-26 12:28 | Outpatient (RCR) | payer MEDICARE | END 2020-01-27 | LOC: WCC 12:28 | PROVIDERS: ATTEND Family Medicine | DX: N30.41 Irradiation cystitis with hematuria (principal); T66.XXXA Radiation sickness, unspecified, initial encounter; R31.9 Hematuria, unspecified; F03.90 Unspecified dementia, unspecified severity, without behavioral disturbance, psychotic disturbance, mood disturbance, and anxiety; Z01.810 Encounter for preprocedural cardiovascular examination; Z01.811 Encounter for preprocedural respiratory examination; Z85.46 Personal history of malignant neoplasm of prostate | CPT/HCPCS: G0277 ×19 ==

== ENCOUNTER 2020-01-30 14:59 | Outpatient (RCR) | payer MEDICARE | END 2020-02-27 | LOC: WCC 14:59 | PROVIDERS: ATTEND Family Medicine | DX: N30.41 Irradiation cystitis with hematuria (principal); T66.XXXA Radiation sickness, unspecified, initial encounter; R31.9 Hematuria, unspecified; F03.90 Unspecified dementia, unspecified severity, without behavioral disturbance, psychotic disturbance, mood disturbance, and anxiety; Z01.810 Encounter for preprocedural cardiovascular examination; Z01.811 Encounter for preprocedural respiratory examination; Z85.46 Personal history of malignant neoplasm of prostate | CPT/HCPCS: G0277 ×2 ==

== ENCOUNTER 2020-10-08 08:19 | Emergency (ER) | payer MEDICARE ==
[~2020-10-08] VITALS: Ht 170.2 cm; Wt 88.0 kg
[2020-10-08] MEDS ORDERED: SODIUM CHLORIDE 0.9% 1000ML 1,000 ML IV STA (08:37)
[2020-10-08 09:00] LABS: BASOPHILS # (AUTO) 0.1 (0.0-0.1); BASOPHILS % 0.8 % (0.0-1.0); EOSINOPHILS # (AUTO) 0.2 (0.0-0.4); EOSINOPHILS % 3.7 % (0.0-6.0); HEMATOCRIT 43.7 % (38.2-49.6); HEMOGLOBIN 14.4 g/dL (14.0-18.0); LYMPHOCYTES # (AUTO) 1.1 (1.0-3.2); LYMPHOCYTES % 17.7 % (18.0-39.1); MEAN CORPUSCULAR HEMOGLOBIN 28.9 pg (28-32); MEAN CORPUSCULAR VOLUME 87.6 fL (81-99); MONOCYTES # (AUTO) 0.3 (0.2-0.8); MONOCYTES % 5.4 % (4.4-11.3); NEUTROPHILS # (AUTO) 4.3 (2.1-6.9); NEUTROPHILS % 72.2 % (38.7-80.0); PLATELET COUNT 141 x10e3/uL (140-360); RED BLOOD COUNT 4.99 x10e6/uL (4.3-5.7)
[2020-10-08 09:05] LABS: INR 1.01; PARTIAL THROMBOPLASTIN TIME 32.8 seconds (23.8-35.5); PROTHROMBIN TIME 13.8 seconds (11.9-14.5)
[2020-10-08 09:20] LABS: ALANINE AMINOTRANSFERASE 15 IU/L (0-55); ALBUMIN 3.9 g/dL (3.5-5.0); ALBUMIN/GLOBULIN RATIO 1.4 (0.8-2.0); ALKALINE PHOSPHATASE 54 IU/L (40-150); BLOOD UREA NITROGEN 14 mg/dL (7-26); BUN/CREATININE RATIO 17 (6-25); CALCIUM 9.2 mg/dL (8.4-10.2); CARBON DIOXIDE 28 mmol/L (22-29); CHLORIDE 106 mmol/L (98-107); CREATINE KINASE 52 IU/L (30-200); CREATININE, SERUM 0.83 mg/dL (0.72-1.25); EST GLOMERULAR FILTRATION RATE > 60 ML/MIN (60-); GLUCOSE 113 mg/dL (74-118); SODIUM 142 mmol/L (136-145)
[2020-10-08] MEDS ORDERED: IOPAMIDOL 370 MG/ML 200 ML INFUS..BTL INJ ONE (10:00)
[2020-10-08] MEDS ORDERED: SODIUM CHLORIDE 0.9% 250ML 250 ML ONE (10:00)
[2020-10-08 10:02] LABS: CLARITY,URINE TURBID (CLEAR); COLOR,URINE RED (YELLOW)
[2020-10-08 10:04] LABS: LEUKOCYTE ESTERASE ,URINE LARGE (NEGATIVE); NITRITE,URINE POSITIVE (NEGATIVE); PROTEIN,URINE DIPSTICK >=300 (NEGATIVE)
[2020-10-08 10:06] LABS: KETONES,URINE 2+ (NEGATIVE)
[2020-10-08 10:07] LABS: BILIRUBIN,URINE LARGE (NEGATIVE)
[2020-10-08] MEDS ORDERED: CEFTRIAXONE SOD 1 GM/NS 50 ML 50 ML IV ONE (11:15)
== END 2020-10-08 12:11 | disposition home or self-care (01) ==
LOC: ER 08:30
DX: R31.9 Hematuria, unspecified (principal); N39.0 Urinary tract infection, site not specified; E78.5 Hyperlipidemia, unspecified; I48.91 Unspecified atrial fibrillation; Z85.46 Personal history of malignant neoplasm of prostate
CPT/HCPCS: 36415; 74178; 80053; 81001; 82550; 82553; 84484; 85025; 85610; 85730; 87086; 99284; J0696; J7030; J7050; Q9967

== ENCOUNTER → 2021-01-31 | Day surgery (SDC) | payer MEDICARE ==
[2021-01-29 08:07] LABS: BASOPHILS % 0.8 % (0.0-1.0); EOSINOPHILS # (AUTO) 0.3 (0.0-0.4); EOSINOPHILS % 6.2 % (0.0-6.0); HEMATOCRIT 44.6 % (38.2-49.6); HEMOGLOBIN 14.5 g/dL (14.0-18.0); LYMPHOCYTES # (AUTO) 1.2 (1.0-3.2); MEAN CORPUSCULAR HEMOGLOBIN 28.8 pg (28-32); MEAN CORPUSCULAR HGB CONC 32.5 g/dL (31-35); MEAN CORPUSCULAR VOLUME 88.5 fL (81-99); MONOCYTES # (AUTO) 0.3 (0.2-0.8); MONOCYTES % 5.4 % (4.4-11.3); NEUTROPHILS # (AUTO) 3.2 (2.1-6.9); NEUTROPHILS % 64.4 % (38.7-80.0); PLATELET COUNT 151 x10e3/uL (140-360); RED BLOOD COUNT 5.04 x10e6/uL (4.3-5.7); RED CELL DISTRIBUTION WIDTH 12.7 % (11.7-14.4)
[2021-01-29 08:38] LABS: ANION GAP 12.1 mmol/L (8-16); BLOOD UREA NITROGEN 22 mg/dL (7-26); BUN/CREATININE RATIO 26 (6-25); CALCIUM 9.1 mg/dL (8.4-10.2); CARBON DIOXIDE 30 mmol/L (22-29); CHLORIDE 106 mmol/L (98-107); CREATININE, SERUM 0.86 mg/dL (0.72-1.25); EST GLOMERULAR FILTRATION RATE > 60 ML/MIN (60-); GLUCOSE 103 mg/dL (74-118); POTASSIUM 4.1 mmol/L (3.5-5.1); SODIUM 144 mmol/L (136-145)
[~2021-01-31] MED LIST changes: +B&O 60MG R/S 60 MG SUPP PR ONE; +CEFTRIAXONE SOD 1 GM VIAL ONE; +FENTANYL CITRATE/PF 100MCG/2 ML INJ ONE; +IOPAMIDOL 300MG/ML 50ML INFUS..BTL IV ONE; +LIDOCAINE HCL 2% LOCAL INJ 5 ML SDV VIAL INJ ONE; -MYRBETRIQ50 MG; +MYRBETRIQ50 MG PO; +PROPOFOL IV EMULSION 10 MG/ML 20 ML VIAL ONE; +SEVOFLURANE INHAL SOLN 250 ML PEN BTL ONE; +SODIUM CHLORIDE 0.9% 50ML 50 ML ONE
[2021-01-31 11:15] VITALS: BP 186/87
== END | disposition home or self-care (01) ==
LOC: OR 06:25
PROVIDERS: ATTEND Urology
DX: R31.0 Gross hematuria (principal); N35.912 Unspecified bulbous urethral stricture, male; N40.1 Benign prostatic hyperplasia with lower urinary tract symptoms; N13.8 Other obstructive and reflux uropathy; R39.14 Feeling of incomplete bladder emptying; N32.89 Other specified disorders of bladder; Z98.890 Other specified postprocedural states; G47.33 Obstructive sleep apnea (adult) (pediatric); I45.10 Unspecified right bundle-branch block; I48.0 Paroxysmal atrial fibrillation; Z01.812 Encounter for preprocedural laboratory examination; Z01.818 Encounter for other preprocedural examination; Z20.822 Contact with and (suspected) exposure to COVID-19; Z79.02 Long term (current) use of antithrombotics/antiplatelets; Z92.3 Personal history of irradiation; Z85.46 Personal history of malignant neoplasm of prostate; Z87.891 Personal history of nicotine dependence
CPT/HCPCS: 36415; 52214; 71046; 74420; 80048; 85025; 88305; 88342; C1758; J0696; J2001; J2704; J3010; Q9967; U0002

== ENCOUNTER → 2021-02-13 | Outpatient (CLI) | payer MEDICARE ==
[~2021-02-13] MED LIST changes: -B&O 60MG R/S 60 MG SUPP PR ONE; -CEFTRIAXONE SOD 1 GM VIAL ONE; -FENTANYL CITRATE/PF 100MCG/2 ML INJ ONE; -IOPAMIDOL 300MG/ML 50ML INFUS..BTL IV ONE; -LIDOCAINE HCL 2% LOCAL INJ 5 ML SDV VIAL INJ ONE; -PROPOFOL IV EMULSION 10 MG/ML 20 ML VIAL ONE; -SEVOFLURANE INHAL SOLN 250 ML PEN BTL ONE; -SODIUM CHLORIDE 0.9% 50ML 50 ML ONE
== END ==
LOC: RAD 12:10
PROVIDERS: ATTEND Family Medicine
DX: Z09 Encounter for follow-up examination after completed treatment for conditions other than malignant neoplasm (principal); J18.9 Pneumonia, unspecified organism
CPT/HCPCS: 71046

== ENCOUNTER → 2021-11-24 | Day surgery (SDC) | payer MEDICARE ==
[2021-11-20 12:52] LABS: BASOPHILS # (AUTO) 0.1 (0.0-0.1); BASOPHILS % 0.8 % (0.0-1.0); EOSINOPHILS # (AUTO) 0.3 (0.0-0.4); HEMATOCRIT 43.1 % (38.2-49.6); HEMOGLOBIN 13.8 g/dL (14.0-18.0); LYMPHOCYTES # (AUTO) 1.1 (1.0-3.2); LYMPHOCYTES % 17.2 % (18.0-39.1); MEAN CORPUSCULAR HEMOGLOBIN 28.8 pg (28-32); MONOCYTES # (AUTO) 0.4 (0.2-0.8); MONOCYTES % 5.9 % (4.4-11.3); NEUTROPHILS # (AUTO) 4.4 (2.1-6.9); NEUTROPHILS % 70.8 % (38.7-80.0); PLATELET COUNT 148 x10e3/uL (140-360); RED BLOOD COUNT 4.79 x10e6/uL (4.3-5.7); RED CELL DISTRIBUTION WIDTH 13.2 % (11.7-14.4)
[2021-11-20 13:19] LABS: ALBUMIN 3.7 g/dL (3.5-5.0); ALBUMIN/GLOBULIN RATIO 1.4 (0.8-2.0); ANION GAP 11.6 mmol/L (8-16); CALCIUM 8.8 mg/dL (8.4-10.2); CREATININE, SERUM 0.83 mg/dL (0.72-1.25); POTASSIUM 4.6 mmol/L (3.5-5.1)
[~2021-11-24] MED LIST changes: +BELLADONNA/OPIUM 30 MG SUPP RC ONE; +DEXAMETHASONE SOD PHOS INJ 4 MG/ML SDV ONE; +EPHEDRINE SULFATE INJ 50 MG/ML VIAL ONE; +FENTANYL CITRATE/PF 100MCG/2 ML INJ ONE; +IOPAMIDOL 300MG/ML 50ML INFUS..BTL IV ONE; +LIDOCAINE HCL 2% LOCAL INJ 5 ML SDV VIAL INJ ONE; +MACROBID 100 M100 MG PO; +MEROPENEM 1 GM VIAL ONE; +NITROFURANTOIN100 MG PO; +ONDANSETRON HCL INJ 2MG/ML 2ML 2 MG/ML VIAL ONE; +POVIDONE IODINE 0.05% 0.05 % ML PO ONE; +PROPOFOL IV EMULSION 10 MG/ML 20 ML VIAL ONE; +SEVOFLURANE INHAL SOLN 250 ML PEN BTL ONE; +SODIUM CHLORIDE 0.9% 1000ML 1,000 ML ONE; +SODIUM CHLORIDE 0.9% 50ML 50 ML ONE; +TRAMADOL HCL 50 MG TAB ONE
[2021-11-24 08:25] VITALS: BP 180/70
== END | disposition home or self-care (01) ==
LOC: OR 07:02
PROVIDERS: ATTEND Urology
DX: C67.2 Malignant neoplasm of lateral wall of bladder (principal); N35.812 Other bulbous urethral stricture, male; N32.3 Diverticulum of bladder; N32.89 Other specified disorders of bladder; N40.0 Benign prostatic hyperplasia without lower urinary tract symptoms; Z98.890 Other specified postprocedural states; G47.33 Obstructive sleep apnea (adult) (pediatric); E13.9 Other specified diabetes mellitus without complications; E78.5 Hyperlipidemia, unspecified; I45.10 Unspecified right bundle-branch block; I48.0 Paroxysmal atrial fibrillation; R00.2 Palpitations; M19.90 Unspecified osteoarthritis, unspecified site; R01.1 Cardiac murmur, unspecified; F03.90 Unspecified dementia, unspecified severity, without behavioral disturbance, psychotic disturbance, mood disturbance, and anxiety; Z01.812 Encounter for preprocedural laboratory examination; Z01.818 Encounter for other preprocedural examination; Z20.822 Contact with and (suspected) exposure to COVID-19; Z79.02 Long term (current) use of antithrombotics/antiplatelets; Z79.899 Other long term (current) drug therapy; Z85.46 Personal history of malignant neoplasm of prostate; Z92.3 Personal history of irradiation; Z86.73 Personal history of transient ischemic attack (TIA), and cerebral infarction without residual deficits
CPT/HCPCS: 36415; 52005; 52234; 71046; 74420; 80053; 85025; 88305; C1758; J1100; J2001; J2185; J2405; J2704; J3010; J7030; Q9967; U0002